=== PATIENT | male | born 1985 | race Caucasian/White ===

== ENCOUNTER 2018-09-25 14:44 | Emergency (ER) | payer MEDICAID ==
[~2018-09-25] VITALS: Ht 185.4 cm; Wt 54.5 kg
[2018-09-25 14:45] VITALS: BP 145/73
[2018-09-25] MEDS ORDERED: KETOROLAC TROMETHAMINE 30 MG/ML VIAL IM ONE (16:00)
== END 2018-09-25 16:41 | disposition home or self-care (01) ==
LOC: EMS 14:46
DX: S02.5XXA Fracture of tooth (traumatic), initial encounter for closed fracture (principal); X58.XXXA Exposure to other specified factors, initial encounter; Y93.89 Activity, other specified; Y92.89 Other specified places as the place of occurrence of the external cause; Y99.8 Other external cause status
CPT/HCPCS: 96372; 99283; J1885

== ENCOUNTER 2018-11-24 21:39 | Emergency (ER) | payer SELFPAY ==
[~2018-11-24] VITALS: Ht 185.4 cm; Wt 90.9 kg
[2018-11-24 23:21] VITALS: BP 134/72
== END 2018-11-24 23:24 | disposition home or self-care (01) ==
LOC: EMS 21:41
DX: K04.7 Periapical abscess without sinus (principal)

== ENCOUNTER 2020-09-16 23:15 | Emergency (ER) | payer OTHER ==
[~2020-09-16] VITALS: Ht 185.4 cm; Wt 79.0 kg
[2020-09-16] MEDS ORDERED: KETOROLAC TROMETHAMINE 30 MG/ML VIAL IM ONE (23:45)
[2020-09-16] MEDS ORDERED: ACETAMINOPHEN 500 MG TABLET PO ONE (23:45)
[2020-09-16] MEDS ORDERED: LIDOCAINE 5% TRANSDERMAL PATCH TD ONE (23:45)
[2020-09-17 00:01] VITALS: BP 129/73
== END 2020-09-17 00:17 | disposition home or self-care (01) ==
LOC: EMS 23:15
DX: S39.012A Strain of muscle, fascia and tendon of lower back, initial encounter (principal); X50.0XXA Overexertion from strenuous movement or load, initial encounter; Y93.89 Activity, other specified; Y92.89 Other specified places as the place of occurrence of the external cause; Y99.0 Civilian activity done for income or pay
CPT/HCPCS: 99282; J1885